=== PATIENT | male | born 1965 | race Caucasian/White ===

== ENCOUNTER → 2016-11-07 | Outpatient (CLI) | payer BC | END | disposition home or self-care (01) | LOC: CFH 17:05 | PROVIDERS: ATTEND Nurse Practitioner Primary Care | DX: M54.2 Cervicalgia (principal); E78.2 Mixed hyperlipidemia; E11.43 Type 2 diabetes mellitus with diabetic autonomic (poly)neuropathy; R53.83 Other fatigue | CPT/HCPCS: 72040 ==